=== PATIENT | female | born 1990 | race American Indian/Alaskan Native ===

== ENCOUNTER 2019-05-10 22:14 | Emergency (ER) | payer MEDICARE ==
[2019-05-10 22:23] VITALS: BP 155/87
[2019-05-10] MEDS ORDERED: IPRATROPIUM/ALBUTEROL SULFATE 3 ML AMPUL.NEB IH ONE (23:28)
[2019-05-11 00:26] LABS: HCG Qualitative,Urine Negative (Negative)
--- NOTE | 2019-05-11 00:42 | Emergency Department Report ---
ED Asthma HPI - General Chief Complaint: Adult Asthma Stated Complaint: SOB, TEST DESIRED Time Seen by Provider: 05/11/19 00:25 Source: patient Mode of arrival: Ambulatory Limitations: No Limitations - History of Present Illness Initial Comments: pt presents for sob wheezing x 2 days, states she is out of asthma medication. symptoms include wheezing there is no cp no n/v no fever or chills no productive cough. pt rates symptoms at 3/10 . MD Complaint: "asthma attack" Onset/Timin -: days(s) Asthma History: childhood onset Severity: moderate Context: recent URI Associated Symptoms: dry cough - Related Data Current Asthma Therapy: none Home Medications Medication Instructions Recorded Confirmed Last Taken Ferrous Gluconate [Iron] 325 mg PO 04/09/13 04/09/13 04/09/13 21/Iron Fu/Folic Acid 04/09/13 04/09/13 04/09/13 [ Complete Caplet] Previous Rx's Medication Instructions Recorded Last Taken Type Acetaminophen/Codeine [Tylenol #3] 1 tab PO Q6H PRN #15 tab 04/09/13 Unknown Rx Ciprofloxacin HCl [Cipro] 500 mg PO BID #20 tablet 04/09/13 Unknown Rx Phenazopyridine [Pyridium] 200 mg PO TID #9 tablet 04/09/13 Unknown Rx HYDROcodone/APAP 5-325 [Mcdaniel 1 each PO Q6HR PRN #12 tablet 12/11/13 Unknown Rx 5-325 mg TAB] cephALEXin [Keflex] 500 mg PO TID #21 capsule 12/11/13 Unknown Rx ALBUTEROL Inhaler (OR & NICU) 2 puff IH QID PRN #1 each 05/11/19 Unknown Rx [ProAir HFA Inhaler] predniSONE [Deltasone] 40 mg PO QDAY 5 Days #10 tab 05/11/19 Unknown Rx Allergies Allergy/AdvReac Type Severity Reaction Status Date / Time No Known Allergies Allergy Verified 04/23/14 08:14 ED Review of Systems ROS: Stated complaint: SOB, TEST DESIRED Other details as noted in HPI Constitutional: denies: chills, fever Eyes: denies: eye pain, eye discharge, vision change ENT: denies: ear pain, throat pain Respiratory: cough, shortness of breath, wheezing Cardiovascular: denies: chest pain, palpitations Endocrine: no symptoms reported Gastrointestinal: denies: abdominal pain, nausea, diarrhea Genitourinary: denies: urgency, dysuria, discharge Musculoskeletal: denies: back pain, joint swelling, arthralgia Skin: denies: rash, lesions Neurological: denies: headache, weakness, paresthesias Psychiatric: denies: anxiety, depression Hematological/Lymphatic: denies: easy bleeding, easy bruising ED Past Medical Hx - Past Medical History Previous Medical History?: Yes Hx Hypertension: Yes Hx Psychiatric Treatment: Yes (Bipolar, Depression) Hx Asthma: Yes Additional medical history: Obesity - Surgical History Past Surgical History?: Yes Additional Surgical History: - Social History Smoking Status: Never Smoker Substance Use Type: None - Medications Home Medications: Home Medications Medication Instructions Recorded Confirmed Last Taken Type Acetaminophen/Codeine [Tylenol #3] 1 tab PO Q6H PRN #15 tab 04/09/13 Unknown Rx Ciprofloxacin HCl [Cipro] 500 mg PO BID #20 tablet 04/09/13 Unknown Rx Ferrous Gluconate [Iron] 325 mg PO 04/09/13 04/09/13 04/09/13 History Phenazopyridine [Pyridium] 200 mg PO TID #9 tablet 04/09/13 Unknown Rx 21/Iron Fu/Folic Acid 04/09/13 04/09/13 04/09/13 History [ Complete Caplet] HYDROcodone/APAP 5-325 [Mcdaniel 1 each PO Q6HR PRN #12 tablet 12/11/13 Unknown Rx 5-325 mg TAB] cephALEXin [Keflex] 500 mg PO TID #21 capsule 12/11/13 Unknown Rx ALBUTEROL Inhaler (OR & NICU) 2 puff IH QID PRN #1 each 05/11/19 Unknown Rx [ProAir HFA Inhaler] predniSONE [Deltasone] 40 mg PO QDAY 5 Days #10 tab 05/11/19 Unknown Rx ED Physical Exam - General Limitations: No Limitations General appearance: alert, in no apparent distress - Head Head exam: Present: atraumatic, normocephalic - Eye Eye exam: Present: normal appearance, PERRL, EOMI - ENT ENT exam: Present: normal orophraynx, mucous membranes moist, TM's normal bilaterally, normal external ear exam - Expanded ENT Exam Expanded Throat exam: Positive: normal inspection. Negative: tonsillar erythema, tonsillomegaly, tonsillar exudate - Neck Neck exam: Present: normal inspection, full ROM. Absent: tenderness - Respiratory Respiratory exam: Present: normal lung sounds bilaterally, prolonged expiratory. Absent: respiratory distress, wheezes, rales, rhonchi, stridor, chest wall tenderness - Cardiovascular Cardiovascular Exam: Present: regular rate, normal rhythm, normal heart sounds. Absent: systolic murmur, diastolic murmur, rubs, gallop - GI/Abdominal GI/Abdominal exam: Present: soft, normal bowel sounds. Absent: distended, tenderness, bruit, hernia - Rectal Rectal exam: Present: deferred - Extremities Exam Extremities exam: Present: normal inspection, full ROM, normal capillary refill. Absent: tenderness - Back Exam Back exam: Present: normal inspection, full ROM. Absent: tenderness, CVA tenderness (R), CVA tenderness (L), rash noted - Neurological Exam Neurological exam: Present: alert, oriented X3, CN II-XII intact, normal gait - Psychiatric Psychiatric exam: Present: normal affect, normal mood - Skin Skin exam: Present: warm, dry, intact, normal color. Absent: rash ED Course Vital Signs 05/10/19 22:22 Temperature 98.3 F Pulse Rate 78 Respiratory 20 Rate Blood Pressure 155/87 O2 Sat by Pulse 100 Oximetry ED Medical Decision Making - Medical Decision Making all wheezing is resolved, no cough no other uri symptoms noted, plan: refill albuterol, prednsone, follow up with pcp in 2-3 days. pt verbalized agreement and understanding of discharge plan. Critical care attestation.: If time is entered above; I have spent that time in minutes in the direct care of this critically ill patient, excluding procedure time. ED Disposition Clinical Impression: Asthma Qualifiers: Asthma severity: mild Asthma persistence: intermittent Asthma complication type: uncomplicated Qualified Code(s): J45.20 - Mild intermittent asthma, uncomplicated Disposition: - TO HOME OR SELFCARE Is pt being admited?: No Does the pt Need Aspirin: No Condition: Stable Instructions: Asthma (ED) Prescriptions: predniSONE [Deltasone] 40 mg PO QDAY 5 Days #10 tab ALBUTEROL Inhaler (OR & NICU) [ProAir HFA Inhaler] 2 puff IH QID PRN #1 each PRN Reason: Shortness Of Breath Referrals: [facility] [Outside] - 3-5 Days Forms: Work/School Release Form(ED) Time of Disposition: 00:51
== END 2019-05-11 01:22 | disposition home or self-care (01) ==
LOC: ED 22:14
DX: J45.909 Unspecified asthma, uncomplicated (principal); I10 Essential (primary) hypertension; F31.9 Bipolar disorder, unspecified; E66.9 Obesity, unspecified; Z68.41 Body mass index [BMI] 40.0-44.9, adult; Z79.899 Other long term (current) drug therapy
CPT/HCPCS: 81025; 94640

== ENCOUNTER 2021-10-15 18:30 | Outpatient (CLI) | payer MEDICAID, MEDICARE ==
[2021-10-15 19:02] VITALS: BP 122/75
[2021-10-15] MEDS ORDERED: LACTATED RINGERS 1,000 ML ONE (19:58)
[2021-10-15] MEDS ORDERED: LACTATED RINGERS 1,000 ML IV SCH (20:15)
[2021-10-15 20:27] LABS: Bilirubin,Urine NEG (Negative); Blood,Urine NEG (Negative); Color,Urine Yellow (Yellow); Mucus,Urine 1+ /HPF
[2021-10-15] MEDS ORDERED: LACTATED RINGERS 500 ML IV ONE (23:21)
== END 2021-10-15 23:32 | disposition home or self-care (01) ==
LOC: TRG 18:30 → LD 18:36 → TRG 23:32
PROVIDERS: ATTEND Obstetrics & Gynecology
DX: O62.9 Abnormality of forces of labor, unspecified (principal); O24.419 Gestational diabetes mellitus in pregnancy, unspecified control; O99.322 Drug use complicating pregnancy, second trimester; F12.90 Cannabis use, unspecified, uncomplicated; Z3A.27 27 weeks gestation of pregnancy
CPT/HCPCS: 36415; 59025; 81001; 82731; 87086; 96360

== ENCOUNTER 2021-11-12 12:44 | Outpatient (CLI) | payer MEDICARE ==
[2021-11-12 18:32] VITALS: BP 119/61
--- NOTE | 2021-11-12 19:27 | Ultrasound Report ---
ULTRASOUND OBSTETRIC LIMITED ULTRASOUND BIOPHYSICAL PROFILE INDICATION / CLINICAL INFORMATION: DINORA. COMPARISON: None available. FINDINGS: BREATHING MOVEMENT = 2 GROSS BODY MOVEMENT = 2 TONE = 2 QUALITATIVE AMNIOTIC FLUID VOLUME = 2 TOTAL BIOPHYSICAL SCORE = 8/8 AMNIOTIC FLUID INDEX (cm) = 26.8 PRESENTATION: Cephalic. HEART RATE (beats per minute): 133 ADDITIONAL FINDINGS: None. IMPRESSION: 1. Biophysical Score = 8/8 2. Polyhydramnios Signer Name: Edwin Fam MD Signed: 11/12/2021 7:22 PM Workstation Name: [id number]
== END 2021-11-12 19:12 | disposition home or self-care (01) ==
LOC: TRG 12:44 → APU 12:45 → TRG 19:12
PROVIDERS: ATTEND Obstetrics & Gynecology
DX: O36.8130 Decreased fetal movements, third trimester, not applicable or unspecified (principal); Z3A.31 31 weeks gestation of pregnancy
CPT/HCPCS: 59025; 76815; 76819